=== PATIENT | female | born 1950 | race Caucasian/White ===

== ENCOUNTER → 2017-02-22 12:46 | Outpatient (CLI) | payer MEDICARE, OTHER ==
[2016-05-27 09:40] VITALS: BMI 32.3
[~2017-02-22 12:46] MED LIST: ACETAMINOPHEN500 M1 PO; CARAFATE1 G PO; CELEXA20 MG PO; CLONAZEPAM2 MG/TAB PO; CYCLOBENZAPRINE10 MG PO; FERROUS SULFAT325 MG PO; KETOTIFEN PO; LIBRAX CAPSULE1 CAP PO; OMEPRAZOLE40 MG PO; PRILOSEC20 MG PO; REQUIP0.25 MG PO; RESTORIL15 MG PO; TRAZODONE; TRAZODONE HCL300 MG PO; TRAZODONE PO; TYLENOL PM1 TAB PO; VALIUM10 MG PO; [UNRECOGNIZED DRUG - OTHER]; [UNRECOGNIZED DRUG - OTHER] PO
== END | disposition home or self-care (01) ==
LOC: D.US 12:46
DX: M79.605 Pain in left leg (principal); R60.0 Localized edema

== ENCOUNTER 2017-05-26 06:13 | Day surgery (SDC) | payer MEDICARE, OTHER ==
[2017-05-25 10:07] LABS: HEMATOCRIT 44.5 % (36.0-48.0); MCH 29.1 pg (26.0-34.0); MCHC 33.7 g/dL (31.0-37.0); MCV 86.2 fL (80.0-100.0); MEAN PLATELET VOLUME 11.3 fL (7.4-10.4); RBC 5.16 10x6/uL (4.00-5.40); RDW 14.1 % (11.5-14.5); WBC 6.5 10x3/uL (4.8-10.8)
[2017-05-26 07:49] VITALS: BP 198/84; BMI 32.3
--- NOTE | 2017-06-11 10:04 | HP ---
PATIENT: RIVAS MCCLURE MEDICAL RECORD: [id number] ACCOUNT: [id number] LOCATION:DANTIONE : 46 ADMISSION DATE: 05/26/17 HISTORY AND PHYSICAL EXAMINATION CHIEF COMPLAINT: History of gastric polyps. HISTORY OF PRESENT ILLNESS: The patient is following up after undergoing an argon plasma coagulation therapy to polyps, which were likely bleeding gastric polyps, last year. I have reviewed the pathology. She has had no dysphagia. No abdominal pain. No hematochezia. No hematemesis. 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 We have not talked about doing that this year. 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 ALLERGIES: NIACIN, ANCEF, ZOSYN, KEFLEX. HOME MEDICATIONS: Please see the nursing list. SOCIAL HISTORY: Nonsmoker. REVIEW OF SYSTEMS: Negative for heart disease. Negative for fainting or seizures. Negative for rheumatic fever, negative for diabetes, negative for thyroid problems, negative for respiratory disease. Negative for shortness of breath. PAST MEDICAL AND SURGICAL HISTORY: Arthritis in the knees, hypertension, history of gastric polyps, sleep apnea. PHYSICAL EXAMINATION: GENERAL: The patient does not appear acutely ill. She does not appear chronically ill. VITAL SIGNS: Reviewed. HEAD: External ears appear normal. EYES: Extraocular movements are intact. NECK: Trachea is midline. CHEST: No intercostal retractions. PULMONARY: Nonlabored, no stridor. ABDOMEN: Nontender. IMPRESSION: History of gastric polyps for EGD to determine whether there has been regrowth of the polyps. PLAN: EGD and then biopsy of any polyps that are present and ablation with the argon plasma wrecker driver. TRANSINT:[id number] Voice Confirmation ID: [id number] DOCUMENT ID: [id number] HISTORY AND PHYSICAL [id number] RENYOSSIRIVASTOR PALMER MD at 1004 CC: ARASH MORENO MD [id number] DICTATION DATE: 05/26/17 1140 PULMONARY CARE NURSE: 05/26/17 1157 [facility] 05/26/17 [facility] [address] [place] [address]
--- NOTE | 2017-06-11 10:04 | OP ---
PATIENT NAME: RIVAS MCCLURE MEDICAL RECORD: [id number] :46 LOCATION:D.OPS ADMISSION DATE: SURGEON: TOR DE ANDA MD DATE OF OPERATION: 05/26/2017 PREOPERATIVE DIAGNOSES: 1. History of gastric polyps. 2. History of Sabillon esophagus in need of surveillance upper endoscopy. POSTOPERATIVE DIAGNOSES: 1. History of gastric polyps. 2. History of Sabillon esophagus in need of surveillance upper endoscopy. 3. Minimal Sabillon's present. 4. Two gastric polyps were noted along the greater curve of the stomach in the antrum. These were both firm polyps and may represent hamartomas. PROCEDURES: 1. Esophagogastroduodenoscopy with antral biopsies as well as biopsies of the polyps and also distal esophageal biopsies. 2. Ablation of the polypoid bases utilizing the argon plasma extension course counselor with the esophageal setting in the forced mode. OPERATIVE COURSE: The patient was conveyed to the operating room electively on 05/26/2017. General anesthesia was induced by the anesthesia staff. A bite block was inserted. A gastroscope was inserted into the mouth. It was advanced easily into the hypopharynx. The esophagus was easily intubated as were the stomach and duodenum. Upon withdrawal, retroflexed and angulus views were obtained. Antral biopsies were obtained. Distal esophageal biopsies were obtained. I then biopsied the polyps. I took numerous biopsies of the polyps and essentially was able to remove both the polyps in a subtotal fashion with just the cold endoscopic biopsies. I then had ablated the polypoid bases utilizing the argon plasma extension course counselor with the esophageal setting in the forced mode. The endoscope was then withdrawn under direct vision. I will see the patient in my office in 2-3 weeks. We will review the results of the biopsies. Depending on the pathologic results, the patient may require another procedure in the future or may not or we may elect to perform these on a p.r.n. basis if the patient develops anemia. TRANSINT:[id number] Voice Confirmation ID: [id number] DOCUMENT ID: [id number] TOR DE ANDA MD at 1004 CC: ARASH MORENO MD [id number] DICTATION DATE: 05/26/17 1143 ADOLESCENT SPECIALIST: 05/26/17 1215 [facility] 05/26/17 [place] [id number] [place], [place] [id number]
== END 2017-05-26 15:45 | disposition home or self-care (01) ==
LOC: D.OPS 06:13 → D.PAN 08:00 → D.OPS 15:45
PROVIDERS: Anesthesiology
DX: K22.70 Barrett's esophagus without dysplasia (principal); K31.7 Polyp of stomach and duodenum; I10 Essential (primary) hypertension; M13.869 Other specified arthritis, unspecified knee; G47.30 Sleep apnea, unspecified; Z79.899 Other long term (current) drug therapy

== ENCOUNTER 2018-01-18 08:00 | Outpatient (CLI) | payer MEDICARE, OTHER | END 2018-01-18 11:59 | disposition home or self-care (01) | LOC: D.MAMMO 08:00 | DX: Z12.31 Encounter for screening mammogram for malignant neoplasm of breast (principal) ==

== ENCOUNTER 2018-02-25 19:00 | Outpatient (CLI) | payer MEDICARE, OTHER | END 2018-02-25 20:00 | disposition home or self-care (01) | LOC: D.MAMMO 19:00 | DX: R92.8 Other abnormal and inconclusive findings on diagnostic imaging of breast (principal) ==

== ENCOUNTER → 2018-03-01 11:10 | Outpatient (CLI) | payer MEDICARE, OTHER | END | disposition home or self-care (01) | LOC: D.MRI 11:10 | DX: M54.16 Radiculopathy, lumbar region (principal) ==

== ENCOUNTER 2018-08-29 08:00 | Outpatient (CLI) | payer MEDICARE, OTHER | END 2018-08-29 09:00 | disposition home or self-care (01) | LOC: D.MAMMO 08:00 | DX: R92.8 Other abnormal and inconclusive findings on diagnostic imaging of breast (principal) ==

== ENCOUNTER → 2018-09-16 18:09 | Outpatient (CLI) | payer MEDICARE, OTHER | END | disposition home or self-care (01) | LOC: D.MAMMO 08:00 | DX: R92.1 Mammographic calcification found on diagnostic imaging of breast (principal) ==

== ENCOUNTER 2019-03-21 11:00 | Outpatient (CLI) | payer MEDICARE, OTHER | END 2019-03-21 11:30 | disposition home or self-care (01) | LOC: D.MAMMO 11:00 | PROVIDERS: ATTEND Surgery | DX: N63.10 Unspecified lump in the right breast, unspecified quadrant (principal); R92.0 Mammographic microcalcification found on diagnostic imaging of breast ==

== ENCOUNTER 2019-10-03 17:01 | Outpatient (CLI) | payer MEDICARE, OTHER ==
[~2019-10-03] VITALS: Ht 167.6 cm; Wt 90.0 kg
--- NOTE | ~2019-10-03 | HEMODYNAMI ---
PATIENT:RIVAS MCCLURE MEDICAL RECORD: [id number] : 46 [id number] ADMISSION DATE: 10/03/19 Generatedon:10/03/201918:38 Patient name: RIVAS MCCLURE Patient #: [id number] SSN: : 1950 Date of study: 10/03/2019 Page: Of Hemodynamic Procedure Report Patient Data Patient Demographics Procedure consent was obtained First Name: RIVAS Gender: Female Last Name: REN : 1950 [facility] Initial: R Age: 68 year(s) Patient #: [id number] Race: Unknown Additional ID: [id number] Contact details [address]: [address] [place] [address] State: [place] City: [place] Zip code: [address] Past Medical History Allergies Allergen Reaction Date Comments Reported Other allergy 10/03/2019 ZOSYN, KEFLEX, NIACIN Admission Admission Data Admission Date: 10/03/2019 Admission Time: 17:01 Lab Results Lab Result Date: 10/03/2019 Lab Result Time: 0:00 Biochemistry Name Units Result Min Max BUN mg/dl 25 --(----)-* 7 18 Creatinine mg/dl 0.9 --(-*--)-- 0.6 1.3 eGFR ml/min 66 *-(----)-- 90 120 NONAFRICAN CBC Name Units Result Min Max Hematocrit % 43.6 --(*---)-- 42 54 Hemoglobin g/dl 14.7 --(-*--)-- 13.5 17.5 Procedure Procedure Types Cath Procedure Diagnostic Procedure LHC [facility] w/Coronaries FFR/IVUS FFR Initial Sedation Charges Moderate Sedation up to 15 minutes Procedure Description Procedure Date Procedure Date: 10/03/2019 Procedure Start Time: 18:24 Procedure End Time: 18:36 Procedure Staff Name Function Matthew Rios MD Performing Physician Kimberly Yanez RT Monitor Amanda Pichardo RT Monitor Otilia Mcdonald RT Scrub Marlin Almazan RN Nurse Procedure Data Cath Procedure Fluoroscopy Diagnostic fluoroscopy Total fluoroscopy Time: 1.5 time: 1.5 min min Diagnostic fluoroscopy Total fluoroscopy dose: 570 dose: 570 mGy mGy Contrast Material Contrast Material Type Amount (ml) Isovue 300 78 Entry Location Entry Primary Successful Side Size Upsize Upsize Entry Closure Succes sful Closure Location (Fr) 1 (Fr) 2 (Fr) Remarks Device Remarks Femoral Right 6 Fr Exoseal artery Short Estimated blood loss: 10 ml Diagnostic catheters Device Type Used For End Catheter Placement MULTIPACK Pigtail 5 Fr catheter MULTIPACK JL 4.0 5Fr Procedure catheter MULTIPACK 3DRC 5Fr Procedure catheter Procedure Complications No complications Procedure Medications Medication Administration Route Dosage 0.9% NaCl I.V. 100 ml/hr Oxygen etCO2 Nasal cannula 2 l/min Lidocaine 2% added to field 20 Heparin Flush Bag added to field 2 bags (1000units/500ml NS) Ativan 2 mg Lopressor I.V. 5 mg Hemodynamics Rest HGB: 14.7 (g/dl) Heart Rate: 83 (bpm) Snapshots Pre Cath Intra NCS Post Cath Vital Signs Time Heart Resp SPO2 etCO2 NIBP (mmHg) Rhythm Pain Sedation Rate (ipm) (%) (mmHg) Status Level (bpm) 18:11:35 94 25 100 23 163/78(132) NSR 0 (11) 10(A) , No pain 18:16:10 95 31 96 12.7 137/67(104) NSR 0 (11) 10(A) , No pain 18:20:38 97 15 97 34 128/64(94) NSR 0 (11) 10(A) , No pain 18:25:37 95 18 97 31.4 Measuring NSR 0 (11) 10(A) , No pain 18:26:01 96 19 96 30.7 121/66(95) NSR 0 (11) 9(A) , No pain 18:30:21 82 15 98 19.4 106/61(78) NSR 0 (11) 9(A) , No pain 18:34:42 81 17 97 14.2 118/59(80) NSR 0 (11) 10(A) , No pain Medications Time Medication Route Dose Verified Delivered Reason Notes Eff ectiveness by by 18:14:05 0.9% NaCl I.V. 100 Matthew Jacksona used for ml/hr Blanca Almazan adolescent psychiatrist 18:14:11 Oxygen etCO2 2 Matthew Marlin used for Nasal l/min Blanca Almazan procedure cannula RN 18:14:16 Lidocaine 2% added 20ml Matthew Matthew for local to vial Blanca Rios MD anesthetic field 18:14:20 Heparin Flush added 2 Matthew Matthew used for Bag to bags Blanca Rios MD procedure (1000units/500ml field NS) 18:20:32 Ativan IVP 2 mg Matthew Marlin for Blanca Almazan sedation RN 18:26:47 Lopressor I.V. 5 mg Matthew Marlin Per Blanca Almazan physician director zone Log Time Note 17:55:32 Informed consent obtained and on chart 17:55:51 Amanda Pichardo RT(R) sent for patient. Start room use. 17:55:55 Procedure Status Urgent Heart Cath (IP). 17:55:56 Time tracking: Regular hours (M-F 7:00 - 5:00) 17:56:01 Plan of Care:Hemodynamics will remain stable., Cardiac rhythm will remain stable., Comfort level will be maintained., Respiratory function will remain adequate., Patient/ family verbilizes understanding of procedure., Procedure tolerated without complication., Recovers from procedure without complications.. 17:56:11 H&P Date Dictated: 10/03/2019 ER History on chart.. 17:57:49 Lab Result : BUN 25 mg/dl 17:57:49 Lab Result : Creatinine 0.9 mg/dl 17:57:49 Lab Result : eGFR NONAFRICAN 66 ml/min 17:57:49 Lab Result : Hemoglobin 14.7 g/dl 17:57:49 Lab Result : Hematocrit 43.6 % 18:04:13 Patient allergic to Other allergyZOSYN, KEFLEX, NIACIN 18:04:28 Patient received from ED to CCL 1 Alert and oriented. Tansferred to table in Supine position. 18:04:29 Warm blankets applied, and conrado hugger turned on for patient comfort. 18:04:30 Correct patient and procedure confirmed by team. 18:04:30 ECG and BP/O2 sat monitors applied to patient. 18:09:56 Vital chart was started 18:09:57 Baseline sample Acquired. 18:10:03 Full Disclosure recording started 18:10:07 Pre-procedure instructions explained to patient. 18:10:11 Family in waiting room. 18:10:13 Patient NPO since Midnight. 18:10:16 Is the patient allergic to Iodine/contrast media? No. 18:10:22 Was the patient premedicated? Yes 18:10:24 Is patient on blood thinner?No 18:10:30 Patient diabetic? No. 18:10:39 Previous problem with sedation/anesthesia? Yes NAUSEA 18:10:41 Snore? Yes 18:10:42 Sleep apnea? Yes 18:10:49 Dentures? Yes TIGHT 18:11:12 Patient pain scale 10/10 ?. 18:11:49 IV patent on arrival in left forearm with 0.9% NaCl at [facility]. 18:11:52 Lab results completed and on chart. 18:11:59 Right groin area was prepped with chlora-prep and draped in sterile fashion 18:12:02 Alarms reviewed by R. N. 18:12:03 Sharps counted by scrub and verified by R.N. 18:12:03 Physician paged 18:13:16 2) 60-89 Mildly reduced kidney function, and other findings (as for stage 1) point to kidney disease. 18:13:29 Maximum allowable contrast dose (3.7 X eGFR X 0.75)183 ml. 18:14:05 0.9% NaCl 100 ml/hr I.V. was administered by Marlin Almazan RN; used for procedure; Verbal order read back and verified. 18:14:11 Oxygen 2 l/min etCO2 Nasal cannula was administered by Marlin Almazan RN; used for procedure; Verbal order read back and verified. 18:14:16 Lidocaine 2% 20ml vial added to field was administered by Matthew Rios MD; for local anesthetic; Verbal order read back and verified. 18:14:20 Heparin Flush Bag (1000units/500ml NS) 2 bags added to field was administered by Matthew Rios MD; used for procedure; Verbal order read back and verified. 18:17:35 Stress Test: no; abnormal ? 18:17:39 Risk of Mortality: 5.8 18:17:43 Risk of blood transfusion: 8.7 18:17:47 Risk of JIMMIE: 9.3 18:19:45 Pt rhythm SR w/ ST depression 18:20:14 Physician arrived 18:20:14 --------ALL STOP TIME OUT------ 18:20:15 Final Timeout: patient, procedure, and site verified with staff and physician. All members of the team are in agreement. 18:20:19 Right groin site verified by team. 18:20:24 Fire Safety Assessment: A--An alcohol-based skin anteseptic being used preoperatively., C--Open oxygen or nitrous oxide is being used., D--An ESU, laser, or fiber-optic light is being used. 18:20:30 Physical assessment completed. ASA score P 3 - A patient with severe systemic disease as per Matthew Rios MD. 18:20:32 Ativan 2 mg IVP was administered by Marlin Almazan RN; for sedation; Verbal order read back and verified. 18:21:04 Sedation plan: IV Moderate Sedation Medication:ATIVAN 18:22:30 Zero performed for pressure channel P1 18:22:59 Use device set Femoral Dx 18:23:02 Procedure started. 18:23:12 ACIST Syringe (08014) opened to sterile field. 18:23:13 Bag Decanter (2002S) opened to sterile field. 18:23:13 Medline Cath Pack ([id number]) opened to sterile field. 18:23:15 ACIST Hand Control (95367) opened to sterile field. 18:23:15 ACIST Manifold (30952) opened to sterile field. 18:23:18 DIAGNOSTIC Multipack 5Fr catheter set (QF9527) opened to sterile field. 18:23:18 Tegaderm 4 x 4 (1626W) opened to sterile field. 18:23:24 EMERALD Guide Wire (494-293) opened to sterile field. 18:23:34 SHEATH 6FR [place] (PVP097) opened to sterile field. 18:23:53 CHOICE PT Extra Support 182cm wire ([id number]) opened to sterile field. 18:23:56 INFLATOR Merit BasixCompak (AX8318) opened to sterile field. 18:24:05 Local anesthetic to right femoral artery with Lidocaine 2% by Matthew Rios MD.INITIAL ACCESS ONLY 18:24:19 A 6 Fr Short sheath was inserted into the Right Femoral artery 18:24:57 A MULTIPACK Pigtail 5 Fr catheter was advanced over the wire and used for . 18:25:01 LV gram done using ROLAND 18:25:09 EF : 65 % 18:25:11 Catheter removed. 18:26:01 A MULTIPACK JL 4.0 5Fr catheter was advanced over the wire and used for Procedure. 18:26:04 LCA angiography performed. 18:26:43 Catheter removed. 18::47 Lopressor 5 mg I.V. was administered by Marlin Almazan RN; Per physician; Verbal order read back and verified. 18:27:48 A MULTIPACK 3DRC 5Fr catheter was advanced over the wire and used for Procedure. 18:28:01 RCA angiography performed. 18:29:56 [place] Verrata Plus pressure wire (09794K) opened to sterile field. 18:30:45 GUIDE 6FR XBLAD 4.0 catheter ([id number]) opened to sterile field. 18:30:55 Catheter removed. 18:30:57 Proceeding to intervention. 18:31:09 6 Fr XBLAD4 guide catheter was inserted over the wire 18:31:23 IFR wire advanced. 18:32:04 FFR/IFR wire advanced. 18:33:00 Baseline FFR .93. 18:33:06 Guide Catheter removed. 18:33:27 Sheath removed intact; hemostasis achieved with Exoseal to the Right Femoral artery. 18:33:45 EXOSEAL 6Fr (EX600) opened to sterile field. 18:33:52 Procedure ended.(Physican Out) 18:34:05 Fluoroscopy time 01.50 minutes. 18:34:13 Flurop Dose total: 570 18:34:13 Fluoroscopy dose: 570 mGy 18:34:22 Dose Area Product 49503 mGy/cm. 18:34:26 Contrast amount:Isovue 300 78ml. 18:34:30 Maximum allowable dose exceeded? No. 18:34:41 Insertion/operative site no bleeding no hematoma. 18:34:52 Post right femoral artery:stable 18:34:55 Post Procedure Pulses reassessed and unchanged 18:35:02 Post-procedure physical assessment completed. ASA score P 3 - A patient with severe systemic disease as per Matthew Rios MD. 18:35:13 Post procedure rhythm: sinus rhythm 18:35:16 Estimated blood loss: 10 ml 18:35:18 Post procedure instruction explained to patient.Patient verbalizes understanding. 18:35:37 Procedure type changed to Cath procedure, Diagnostic procedure, LHC, LHC w/Coronaries, FFR/IVUS, FFR Initial, Sedation Charges, Moderate Sedation up to 15 minutes 18:35:45 Procedure and supply charges have been captured, reviewed, submitted and are correct. 18:36:12 Procedure Complication : No complications 18:36:14 Vital chart was stopped 18:36:16 [facility] Findings: mild to moderate CAD (<70%) 18:36:22 See physician's report for complete and final results. 18:36:25 Report given to PCU. 18:36:32 Patient transfered to PCU with Bed. 18:36:34 Procedure ended. 18:36:34 Full Disclosure recording stopped 18:36:37 End room use (Document Last) Device Usage Item Name Manufacture Quantity Catalog Number Hospital Part Current Tx nimal Lot# / Charge Number Stock Stock Serial# Code ACIST Acist 1 71718 684362 856260 481508 20 Syringe Medical (52856) Systems Inc Bag Microtek 1 2001S 339229 14839 133570 5 Decanter Medical Inc. () Medline Medline 1 [id number] 789592 63403 298657 5 Cath Pack ([id number]) ACIST Hand Acist 1 10242 503951 468543 955329 5 Control Medical (91129) Systems Inc ACIST Acist 1 95047 870197 123299 305441 5 Manifold Medical (71328) Systems Inc DIAGNOSTIC Cardinal 1 ZY0289 987109 43499 250773 30 MultipCluepedia 5Fr catheter set (DR3334) Tegaderm 4 3M 1 1626W 255794 233700 591088 5 x 4 (1626W) EMERALD Cardinal 1 502-455 735723 360968 935284 5 Guide Wire Health (502-455) SHEATH 6FR Terumo 1 ZJP817 353905 478572 099101 40 [place] (KJX410) CHOICE PT [place] 1 [id number] 132742 530872 361915 5 Extra Scientific Support 182cm wire (2055722K7) INFLATOR Merit 1 VO8464 259253 831200 579867 15 Mc4 BasixCompak (XX7397) MULTIPACK Cardinal 1 742984 5 Pigtail 5 Health Fr catheter MULTIPACK Cardinal 1 012580 5 JL 4.0 5Fr Health catheter MULTIPACK Cardinal 1 968980 5 3DRC 5Fr Health catheter [place] 1 13165S 946475 [id number] 302926 5 Verrata Plus pressure wire (98603M) GUIDE 6FR Cardinal 1 [id number] 881025 377030 741098 3 XBLAD 4.0 Health catheter (29306575) EXOSEAL 6Fr Cardinal 1 EX600 481877 833608 648795 10 (EX600) Health Signature Audit [place] Stage Time Signature Unsigned Intra-Procedure 10/03/2019 Amanda Pichardo 6:37:20 PM RT(R) Intra-Procedure 10/03/2019 Marlin Almazan 6:38:07 PM RN Intra-Procedure 10/03/2019 Matthew Rios 6:38:41 PM [place] [address] [place] [address]
[2019-10-03 17:43] LABS: CALC OSMOLALITY 282 mosm/kg (275-300); CALCIUM 8.6 mg/dL (8.5-10.1); CARBON DIOXIDE 19.9 mmol/L (21.0-32.0); CHLORIDE - SERUM 106 mmol/L (98-107); CREATININE - SERUM 0.9 mg/dL (0.6-1.3); INR 1.07 (0.85-1.17); POTASSIUM - SERUM 3.7 mmol/L (3.5-5.1); PROTIME 13.9 SECONDS (11.6-15.0); SODIUM 138 mmol/L (136-145); UREA NITROGEN 25 mg/dL (7-18); eGFR NON AFRICAN AMERICAN 66 mL/min (90-120)
[2019-10-03 17:50] LABS: GLUCOSE 152 mg/dL (74-106)
[2019-10-03 17:52] LABS: BASOPHILS 0.4 % (0-2); EOSINOPHILS 0.7 % (0-7); HEMATOCRIT 43.6 % (36.0-48.0); HEMOGLOBIN 14.7 g/dL (12-16); IMMATURE GRANULOCYTES 0.4 % (0-5); LYMPHOCYTES 22.1 % (15-50); MCH 28.1 pg (26.0-34.0); MCHC 33.7 g/dL (31.0-37.0); MCV 83.2 fL (80.0-100.0); MEAN PLATELET VOLUME 10.5 fL (7.4-10.4); MONOCYTES 9.1 % (2-11); NEUTROPHILS 67.3 % (40-80); RBC 5.24 10x6/uL (4.00-5.40); RDW 14.2 % (11.5-14.5); WBC 13.3 10x3/uL (4.8-10.8)
[2019-10-03 17:54] LABS: PLATELET COUNT 281 10x3/uL (130-400)
[2019-10-03 17:58] LABS: ALBUMIN 2.9 g/dL (3.4-5.0); ALKALINE PHOSPHATASE 106 U/L (30-120); ALT (SGPT) 28 U/L (10-68); BILIRUBIN - TOTAL 0.71 mg/dL (0.2-1.3); CKMB 3.2 U/L (0.0-3.6); CREATINE KINASE 41 UL (21-215); MAGNESIUM - SERUM 1.7 mg/dL (1.8-2.4); PROTEIN - SERUM 6.6 g/dL (6.4-8.2); TROPONIN-I 0.032 ng/mL (0.000-0.060)
--- NOTE | 2019-10-03 19:35 | NUR ---
EVENING ROUNDS COMPLETE. PT LAYING SUPINE IN BED, NO SIGNS OF DISTRESS. FAMILY AT BEDSIDE. CL IN REACH, BED IN LOWEST POSITION.
[2019-10-03 21:03] VITALS: BP 130/58
[2019-10-04 01:51] VITALS: BP 170/63
[2019-10-04 03:37] VITALS: Ht 167.6 cm; Wt 90.0 kg
[2019-10-04 06:34] VITALS: BP 154/69
--- NOTE | 2019-10-04 08:12 | NUR ---
RESTING IN BED, NO DISTRESS NOTED, DRESSING TO RIGHT GROIN DRY AND INTACT, IV FLUIDS INFUSING, CONT TO MONITOR
[2019-10-04 08:33] VITALS: BP 134/65
--- NOTE | 2019-10-04 10:03 | NUR ---
IV REMOVED, TIP INTACT, TAKEN TO PRIVATE VEHICLE PER W/C, PRESENT, VOICED NO CONCERNS
--- NOTE | 2019-10-05 16:48 | DS ---
PATIENT:RIVAS PRESTON :46 MEDICAL RECORD: [id number] DISCHARGE SUMMARY ADMISSION DATE: 10/03/19 DISCHARGE DATE: 10/04/19 DISCHARGE DIAGNOSES: 1. Chest pain. 2. Gastroesophageal reflux disease. 3. Normal cardiac catheterization. HOSPITAL COURSE: Ms. Preston presents with chest pain; however, cardiac catheterization was normal. Discharged home to continue her GI-directed medication. No cardiac followup necessary. TRANSINT:[id number] Voice Confirmation ID: [id number] DOCUMENT ID: [id number] JULES COURTNEY MD at 1648 CC: [id number] DICTATION DATE: 10/04/19 0916 HOTEL SALES MANAGER: 10/05/19 0154 [facility] CLI 10/04/[address] [address]
--- NOTE | 2019-10-05 16:48 | OP ---
PATIENT NAME: RIVAS MCCLURE MEDICAL RECORD: [id number] :46 LOCATION:D.CAT ADMISSION DATE: SURGEON: JULES COURTNEY MD DATE OF OPERATION: 10/03/2019 PROCEDURES: 1. Left heart catheterization. 2. Selective coronary angiography. 3. Left ventriculogram. 4. IFR. INDICATION: Chest pain. DESCRIPTION OF PROCEDURE: After informed consent was obtained and after detailed explanation of risks, benefits as well as alternative therapies, the patient elected to proceed with angiogram and heart catheterization. The right femoral area was prepped and draped in normal sterile fashion. Right femoral artery was cannulated via modified Seldinger technique with placement of 6-Uzbek sheath. All catheters exchanged this sheath. FINDINGS: Left ventriculogram was performed in standard 30-degree ROLAND view, reveals good cardiac wall motion throughout all segments. Overall ejection fraction estimated 60%. SELECTIVE CORONARY ANGIOGRAPHY: Left main, left anterior descending, left circumflex have mild irregularities, but no flow-limiting stenosis. IFR of the circumflex was normal. OVERALL IMPRESSION: No significant coronary artery disease is present. Normal LV function. Chest pain is noncardiac in etiology. TRANSINT:[id number] Voice Confirmation ID: [id number] DOCUMENT ID: [id number] JULES COURTNEY MD at 1648 CC: [id number] DICTATION DATE: 10/03/191835 STAFF CYTOTECHNOLOGIST: 10/04/19 0610 [facility] CLI 10/04/19 [facility] [address] [place] [address]
--- NOTE | 2019-10-05 16:48 | HP ---
PATIENT: RIVAS PRESTON MEDICAL RECORD: [id number] ACCOUNT: [id number] LOCATION:DWIGHT : 46 ADMISSION DATE: 10/03/19 PCP: ARASH MORENO MD HISTORY AND PHYSICAL EXAMINATION DIAGNOSES: 1. Angina. 2. Abnormal ECG. 3. Recent EGD. 4. Gastrointestinal reflux disease. HISTORY OF PRESENT ILLNESS: Ms. Preston is undergoing a workup for what was thought to be GI-related chest discomfort. She underwent EGD today, which was uneventful. In the GI suite, she developed relatively severe chest discomfort that is much more compatible with angina than GI-etiology chest discomfort. It is across the anterior chest. She feels like a weight is sitting on her chest. She does not have a history of ischemic heart disease. She had a cardiac catheterization back in the that was overall normal. She continues to have quite severe chest discomfort. She has now become diaphoretic and is having nausea and vomiting with this. Her EKG does appear to have inferolateral abnormalities compatible with ischemia. Her symptomatology is worsening. PHYSICAL EXAMINATION: CONSTITUTIONAL/GENERAL APPEARANCE: Well nourished, well developed, appears stated age. EYES: Lids and conjunctivae noninjected. No discharge. No pallor. ENT: Lips within normal limit. No cyanosis. No pallor. NECK: Carotid arteries, bilateral normal upstroke. No bruits. No thrills. No jugular venous pressure or distention. CERVICAL LYMPH NODES: Nontender. Nonenlarged. THYROID: Not enlarged. No nodules. CARDIOVASCULAR: Precordial exam, nondisplaced. No heaves or pericardial thrills. Rate and rhythm, regular. Heart sounds, normal S1, normal S2. No S3, no gallop, no rub. Systolic murmur, not heard. Diastolic murmur, not heard. RESPIRATORY: Respiratory effort, unlabored. Normal curvature. No thoracic deformity. No chest wall tenderness. Percussion, resonant. Auscultation, clear. No wheezes, no rales, no rhonchi. ABDOMEN: Soft, nondistended, nontender. No abdominal pain, no vomiting and normal appetite. MUSCULOSKELETAL: No joint tenderness, normal gait, normal tone. SKIN: Warm and dry. OVERALL IMPRESSION: Chest pain compatible with angina with diaphoresis, nausea, vomiting, abnormal ECG. At this time, with negative EGD, this is much more likely to have the etiology of ischemic heart disease. Due to her worsening symptomatology, we will proceed with coronary angiography on a semi-emergent basis. TRANSINT:[id number] Voice Confirmation ID: [id number] DOCUMENT ID: [id number] HISTORY AND PHYSICAL [id number] RIVAS PRESTON JEFFREY MD at 1648 CC: [id number] DICTATION DATE: 10/03/191757 COMMERCIAL LIGHT FIXTURE ASSEMBLER: 10/03/192020 [facility] CLI 10/04/19 [place] [address] [place] [address]
== END 2019-10-04 09:50 ==
LOC: D.ER 17:01 → D.CATH 17:01 → D.ER 18:07 → D.M2 19:00 → EDSTATUS 19:26 → D.CATH 10-04 09:50
PROVIDERS: Family Medicine; ATTEND Internal Medicine Interventional Cardiology
DX: R07.9 Chest pain, unspecified (principal); I20.9 Angina pectoris, unspecified; K21.9 Gastro-esophageal reflux disease without esophagitis; R94.31 Abnormal electrocardiogram [ECG] [EKG]; R11.2 Nausea with vomiting, unspecified

== ENCOUNTER 2020-10-09 01:26 | Emergency (ER) | payer MEDICARE, OTHER ==
[~2020-10-09] VITALS: Ht 167.6 cm; Wt 88.6 kg
[~2020-10-09 01:26] MED LIST changes: +ASCORBIC ACID500 MG PO; +LOTREL 5-20 MG1 CAP PO; +MELATONIN 3 MG1 TAB PO; +NIACIN250 M1 PO
[2020-10-09 01:35] VITALS: Ht 167.6 cm; Wt 88.6 kg
[2020-10-09 01:49] VITALS: BP 156/65
== END 2020-10-09 02:32 | disposition home or self-care (01) ==
LOC: D.ER 01:26
DX: R04.0 Epistaxis (principal); I10 Essential (primary) hypertension

== ENCOUNTER 2021-01-28 14:40 | Outpatient (CLI) | payer MEDICARE, OTHER ==
[2020-10-09 01:35] VITALS: BMI 31.5
== END 2021-01-28 23:59 | disposition home or self-care (01) ==
LOC: D.MAMMO 14:40
PROVIDERS: ATTEND Surgery
DX: N63.11 Unspecified lump in the right breast, upper outer quadrant (principal)